=== PATIENT | male | born 1985 | race American Indian/Alaskan Native ===

== ENCOUNTER 2017-12-29 11:40 | Emergency (ER) | payer BC, OTHER ==
[~2017-12-29] VITALS: Ht 180.3 cm; Wt 72.7 kg
[~2017-12-29 11:40] MED LIST: DIPH-423 PO; PRED10TA PO; TRAM50TA2 PO
[2017-12-29 11:50] VITALS: BP 117/73
[2017-12-29] MEDS ORDERED: TETanus/Pertussis (Acell)/Diphther VAC/PF (Tdap-Adult) 0.5ml syringe IM ONE (12:50)
== END 2017-12-29 13:26 | disposition home or self-care (01) ==
LOC: ER 11:40
DX: S61.012A Laceration without foreign body of left thumb without damage to nail, initial encounter (principal); Z88.0 Allergy status to penicillin; Y93.H2 Activity, gardening and landscaping; Y93.89 Activity, other specified; Y92.89 Other specified places as the place of occurrence of the external cause; Y99.8 Other external cause status
CPT/HCPCS: 12001; 73140; 90471; 90715; 99284; A6255; A6449